=== PATIENT | female | born 1935 | race Caucasian/White ===

== ENCOUNTER 2017-06-28 13:23 | Inpatient (IN) | payer MEDICARE, OTHER ==
[2017-06-28] MEDS ORDERED: Meclizine HCl 25 MG TAB ONE (13:48)
[2017-06-28 14:03] LABS: #Basophils 0.1 thou/uL (0.0-0.2); #Eosinphils 0.6 thou/uL (0.0-0.7); #Lymphocytes 2.5 thou/uL (1.20-3.40); #Monocytes 0.7 thou/uL (0.11-0.59); #Neutrophils 8.5 thou/uL (1.40-6.50); %Eosinophils 5.1 % (0.0-10.0); %Monocytes 5.6 % (0.0-10.0); Hematocrit 37.1 % (36.0-47.0); Red Blood Cell (RBC) Count 4.39 mill/uL (4.20-5.40); White Blood Cell (WBC) Count 12.5 thou/uL (4.8-10.8)
[2017-06-28 14:15] LABS: ALT (SGPT) 13 U/L (8-55); AST (SGOT) 24 U/L (5-34); Alkaline Phosphatase 113 U/L (40-150); Anion Gap 14 mmol/L (10-20); BUN (Urea Nitrogen) 10 mg/dL (9.8-20.1); Bilirubin, Total 0.4 mg/dL (0.2-1.2); Calc. Creatinine Clearance 0 mL/min (70-130); Calcium 9.4 mg/dL (7.8-10.44); Carbon Dioxide 24 mmol/L (23-31); Chloride 95 mmol/L (98-107); Estimated GFR-MDRD 83; Protein, Total 8.8 g/dL (6.0-8.3)
[2017-06-28] MEDS ORDERED: Ondansetron HCl/PF 4 MG/2 ML Vial ONE (14:15)
--- NOTE | 2017-06-28 14:52 | CT ---
CT HAD NONCONTRAST: History: Vertigo. Altered mental status. Comparison: 03-30-17 FINDINGS: There is no evidence of acute intracranial hemorrhage or infarct. Diffuse cortical atrophy is simila r in appearance to the prior exam. There is no mass effect or shift of midline structures. Mucosal t hickening is apparent within partially visualized left maxillary sinus. IMPRESSION: No acute intracranial abnormalities are demonstrated on noncontrast CT head. POS: [facility]
[2017-06-28 15:12] LABS: Bilirubin Negative (Negative); Blood, Urine Trace (Negative); Glucose, Urine (Dipstick) Negative (Negative); Ketone, Urine Negative (Negative); Nitrite Negative (Negative); Protein, Urine (Dipstick) Negative (Neg-Trace); Urobilinogen 0.2 mg/dL (0.2-1.0)
[2017-06-28 15:17] LABS: Bacteria/HPF Rare-Few HPF (None Seen); RBC/HPF 0-3 HPF (0-3); WBC/HPF 0-3 HPF (0-3)
[2017-06-28] MEDS ORDERED: Sodium Chloride 0.9% 1,000 ML IV SCH (17:09)
[2017-06-28 17:44] VITALS: BMI 21.3
[2017-06-28] MEDS ORDERED: Ondansetron HCl/PF 4 MG/2 ML Vial IVP PRN (18:44)
[2017-06-28] MEDS ORDERED: Ondansetron ODT 4 MG TAB PO PRN (18:44)
[2017-06-28] MEDS ORDERED: cloNIDine HCl 0.1 MG TAB PO PRN (18:44)
[2017-06-28] MEDS ORDERED: Acetaminophen 500 MG TAB PO PRN (18:44)
--- NOTE | 2017-06-28 19:27 | HP ---
DATE OF ADMISSION: 06/28/2017 PRIMARY CARE PHYSICIAN: Carlotta Cano M.D. CHIEF COMPLAINT: Dizziness. HISTORY OF PRESENT ILLNESS: This is an 82-year-old female who presents to [facility] in transfer from [facility] after presenting to the [facility] complaining of increased dizziness with associated nausea. The patient states the sympt oms began after she soon got out of bed this morning with one episode of emesis. Patient felt dizzy and unsteady and was unable to walk her normal routine in her home, feeling like she would topple o franci. The patient states she has had similar symptoms in the last 2 months, undergoing evaluation wi thout specific etiology identified other than probable dehydration. The patient states she tries to maintain adequate fluid intake, but states overall her appetite is decreased and she is currently s upplementing her regular diet with Ensure 3 times daily. The patient denies any specific change to her chronic medication regimen, recent exposure history, trauma, injury or fever. The patient denie s any high altitude travel or exposure history and no epistaxis, ear drainage or recent dental proce dures. The patient states the symptoms are markedly increased with movement or standing and relieve d by sitting still. In the emergency room, the patient underwent general evaluation including CT of the brain showing no acute intracranial process. EKG showed sinus mechanism without acute changes. The patient received Zofran intravenous normal saline and meclizine and transferred to the observa tion unit for evaluation. PAST MEDICAL HISTORY: 1. History of generalized weakness. 2. 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 3. Hypertension. 4. Hyperlipidemia. 5. History of polymyalgia rheumatica. 6. Status post influenza A in 2012. 7. Deconditioning. PAST SURGICAL HISTORY: 1. Status post bronchoscopy. 2. Status post carpal tunnel release. 3. Status post ectopic with surgical evacuation. 4. Status post bilateral tubal ligation. CURRENT MEDICATIONS: 1. Enteric coated aspirin 81 mg 1 tab p.o. daily. 2. Lipitor 20 mg p.o. at bedtime. 3. Vitamin B12 1000 mcg p.o. daily. 4. Docusate sodium 100 mg p.o. at bedtime. 5. Ibuprofen 400 mg p.o. q.6 hours p.r.n. 6. Atrovent HFA 1 puff inhaled b.i.d. 7. Metoprolol 25 mg p.o. b.i.d. 8. Multivitamin 1 tablet p.o. daily. 9. MiraLax 17 grams p.o. daily. 10. Spiriva HandiHaler 18 mcg inhaled daily. ALLERGIES: To HYDRALAZINE and PROMETHAZINE. FAMILY HISTORY: No inheritable diseases per patient report. SOCIAL HISTORY: Patient resides in [place], [place] with her daughter. Ambulates occasionally with the use of a walker, none currently. No recent fall. No alcohol, tobacco or illicit drug use. REVIEW OF SYSTEMS: The following complete review of systems was negative, unless otherwise mentione d in the HPI or below: Constitutional: Weight loss or gain, ability to conduct usual activities. Skin: Rash, itching. Eyes: Double vision, pain. ENT/Mouth: Nose bleeding, neck stiffness, pain, tenderness. Cardiovascular: Palpitations, dyspnea on exertion, orthopnea. Respiratory: Shortness of breath, wheezing, cough, hemoptysis, fever or night sweats. Gastrointestinal: Poor appetite, abdominal pain, heartburn, nausea, vomiting, constipation, or diar aj. Genitourinary: Urgency, frequency, dysuria, nocturia. Musculoskeletal: Pain, swelling. Neurologic/Psychiatric: Anxiety, depression. Allergy/Immunologic: Skin rash, bleeding tendency. Otherwise negative except as stated per HPI. PHYSICAL EXAMINATION: VITAL SIGNS: Currently, blood pressure 185/84, pulse 81, respiratory rate 18, temperature 97.5 degr ees Fahrenheit, O2 saturation 96% on 2 liters per minute by nasal cannula. GENERAL APPEARANCE: This is an 82-year-old female, alert and oriented x3, pleasant, respo nsive, in no acute distress. HEENT: Pupils are equal, round, and reactive to light and accommodation. Extraocular muscles are i ntact. No scleral icterus, no conjunctival injection. Nares patent. OP is clear. Teeth in good r epair. NECK: Supple, no cervical adenopathy, no thyromegaly, right carotid bruit, no JVD appreciated. Cer vical spine with full active and passive range of motion. CHEST: Lungs are clear to auscultation with occasional expiratory and inspiratory rhonchi and coars e breath sounds. CARDIOVASCULAR: S1 and S2 without noted murmur. ABDOMEN: Flat, soft, nontender, nondistended. Bowel sounds are positive in all four quadrants. Th ere is no hepatosplenomegaly, no abdominal bruits, no rebound or guarding appreciated. EXTREMITIES: Warm and dry with fair turgor. No clubbing, cyanosis or asymmetric edema appreciated. Pulses palpable distally at the dorsalis pedis, posterior tibial, and popliteal arteries bilateral ly. Capillary refill less than 2 seconds. NEUROLOGIC: Cranial nerves II-XII are grossly intact. No focal or lateralizing signs appreciated. No nystagmus noted. PERTINENT LABORATORY DATA AND X-RAY FINDINGS: Sodium 129, potassium 3.8, chloride 95, CO2 of 24, an ion gap 14, BUN 10, creatinine 0.68, estimated GFR of 83, glucose 115, calcium 9.4, magnesium 1.7. LFTs within normal limits. CRP 0.86. Albumin 3.8. CBC showed white blood cell count of 12.5, hemo globin 12.4, hematocrit 37, platelet count 307 with 68% neutrophils. CT of the brain without contra st dated 06/28/2017 showed no acute intracranial process. EKG dated 06/28/2017 by my interpretation shows a sinus mechanism with rates in the 60s. Normal R-wave progression noted in the precordial l adore. Normal axis. No acute ST-T wave changes appreciated. ASSESSMENT AND PLAN: 1. Acute vertigo. Patient will be observed on the stroke unit. Suspect benign positional vertigo; however, given patient's comorbid status and advanced age, we will obtain MRI imaging of the brain to rule out vertebral artery stenosis. Check orthostatic vital signs q.4 hours x2. Check TSH and m agnesium level. Continue blood pressure trend monitoring. We will continue intravenous normal sali ne at 100 mL per hour for questionable component of volume depletion and dehydration. 2. Question of volume depletion/dehydration. Continue intravenous normal saline 100 mL per hour. 3. Hyponatremia. Appears chronic after review of electronic medical record dating back to 2014. W e will give intravenous normal saline as stated previously and repeat sodium level in the a.m. 4. Hypertension. Continue serial blood pressure monitoring. Resume home antihypertensive regimen to include metoprolol 25 mg p.o. b.i.d. 5. Chronic hypoxic respiratory failure secondary of bronchiectasis. Stable currently. No evidence to suggest pulmonary decompensation. Continue oxygen supplementation at 2 liters per minute by jodi al cannula. Resume Atrovent HFA 1 puff inhaled b.i.d. 6. Prophylaxis. Sequential compression devices while in bed. Pepcid 20 mg p.o. b.i.d. 7. Code status is FULL. Surrogate medical decision maker is the patient's daughter.
[2017-06-28] MEDS: Sodium Chloride 0.9% 1,000 ML IV SCH (20:25)
[2017-06-28] MEDS: Atorvastatin Calcium 20 MG TAB PO SCH (20:28)
[2017-06-28] MEDS: Famotidine 20 MG TAB PO SCH (20:28)
[2017-06-28] MEDS: Metoprolol Tartrate 25 MG TAB PO SCH (20:28)
[2017-06-28] MEDS: Ipratropium Bromide 2.5 ml Neb NEB SCH ×2 (20:29→23:49)
[2017-06-28] MEDS: Meclizine HCl 25 MG TAB PO SCH (20:30)
[2017-06-28] MEDS: Docusate 100 MG CAP PO SCH (20:30)
[2017-06-28] MEDS: Ipratropium Oral Inhaler (200 INHALATIONS) INH SCH (20:32)
[2017-06-29] MEDS: Sodium Chloride 0.9% 1,000 ML IV SCH ×2 (04:27→15:32)
[2017-06-29 04:42] LABS: Hematocrit 33.6 % (36.0-47.0); Mean Platelet Volume 6.9 fL (7.4-10.4); Red Blood Cell (RBC) Count 3.66 mill/uL (4.20-5.40); White Blood Cell (WBC) Count 7.7 thou/uL (4.8-10.8)
[2017-06-29 04:51] LABS: Anion Gap 8 mmol/L (10-20); BUN (Urea Nitrogen) 7 mg/dL (9.8-20.1); Calc. Creatinine Clearance 62 mL/min (70-130); Calcium 8.8 mg/dL (7.8-10.44); Carbon Dioxide 27 mmol/L (23-31); Chloride 104 mmol/L (98-107); Estimated GFR-MDRD 87; Magnesium 1.8 mg/dL (1.6-2.6)
[2017-06-29 05:24] LABS: Neutrophil 54 % (42-75)
[2017-06-29] MEDS: Meclizine HCl 25 MG TAB PO SCH ×3 (05:39→21:07)
[2017-06-29] MEDS: Ipratropium Bromide 2.5 ml Neb NEB SCH ×2 (06:28→13:55)
[2017-06-29] MEDS: Ipratropium Oral Inhaler (200 INHALATIONS) INH SCH (06:31)
[2017-06-29] MEDS: Metoprolol Tartrate 25 MG TAB PO SCH ×2 (08:26→21:07)
[2017-06-29] MEDS: Polyethylene Glycol 3350 17 GM Packet PO SCH (08:26)
[2017-06-29] MEDS: Multivit, Therapeutic 1 TAB PO SCH (08:26)
[2017-06-29] MEDS: Famotidine 20 MG TAB PO SCH ×2 (08:26→21:07)
[2017-06-29] MEDS: Cyanocobalamin (Vitamin B-12) 1,000 MCG TAB PO SCH (08:26)
[2017-06-29] MEDS ORDERED: FLU VACC TS2017-18 (>65YR) 0.5 ML SYRINGE IM ONE (09:00)
--- NOTE | 2017-06-29 15:49 | MRI ---
PRE AND POST CONTRAST ENHANCED MRI OF THE BRAIN: History: 82-year-old with vertigo. Patient had similar symptoms two weeks ago. Technique: Pre and post contrast enhanced MRI images of the brain obtained. FINDINGS: Images demonstrate no evidence of acute strokes, hemorrhages, or masses. No significant evidence of T2 signal abnormality is seen . There does appear to be some mild increased T2 signal hallie nges seen in the central kun possibly representing central pontine white matter changes. There is some mild diffuse meningeal enhancement. This may represent possible diffuse carcinomatosis or other inflammatory causes of the meninges. It may be worthwhile to consider a spinal tap as well as correlate with clinical and laboratory findings. Left maxillary sinus mucosal thickening seen. There is also an air fluid level in the left maxillary sinus. IMPRESSION: Diffuse meningeal enhancement POS: [facility]
--- NOTE | 2017-06-29 21:05 | CON ---
DATE OF CONSULTATION: 06/29/2017 REASON FOR CONSULTATION: Dizziness and abnormal MRI brain. REFERRING PROVIDER: Elliott Santoyo D.O. HISTORY OF PRESENT ILLNESS: Ms. Forrester is a pleasant 82-year-old female, who has been cons ulted for evaluation of dizziness and abnormal brain MRI. Patient has had actually been seen by me in her previous admission who had presented with similar complaints. At that time, her symptoms wer e felt to be benign positional vertigo. Patient had been discharged to rehab therapy. She reported that she was improving her gait imbalance as well as generalized weakness after undergoing rehabili tation therapy. She notes that on since yesterday, she started having increasing episodes of dizzin ess with nausea sensation. She described her dizziness as having a room spinning around as well as blurry vision. She had to hold onto bautista to walk. She was having difficulty with focusing. She d enied having any headache, chest pain, palpitation, numbness, tingling, difficulty with bowel or myrna dder function. PAST MEDICAL HISTORY: Significant for hypertension, hyperlipidemia, chronic bronchiectasis secondar y to TB exposure as a child, hyperlipidemia and polymyalgia rheumatica. PAST SURGICAL HISTORY: Significant for carpal tunnel release, ectopic with surgical evacu ation, bilateral tubal ligation. CURRENT MEDICATIONS: Please review MAR. ALLERGIES: Include HYDRALAZINE and PROMETHAZINE. FAMILY HISTORY: Noncontributory. SOCIAL HISTORY: She denies smoking, alcohol use or illicit drug use. REVIEW OF SYSTEMS: As mentioned in the HPI, otherwise negative. PHYSICAL EXAMINATION: VITAL SIGNS: Blood pressure of 145/72, pulse of 70, temperature of 97.5, respirations of 16, O2 sat s of 95% on room air. GENERAL: Well-developed, well-nourished female in no apparent distress. RESPIRATORY: Clear to auscultation bilaterally. CARDIOVASCULAR: Regular rate and rhythm. NEUROLOGIC: Mental status: The patient is awake, alert and oriented x3. Speech and language: Flu ent speech. Cranial nerves: Pupils are 3 mm and reactive. Visual ellis are intact. Extraocular muscles are intact. No nystagmus is noted. Face is symmetric. Tongue and uvula midline. Motor ex am showed normal tone and bulk with a 5/5 strength in both upper and lower extremities. Sensory: S ensation is intact and symmetric. Deep tendon reflexes 2+ reflexes in both upper and lower extremit ies. Babinski: Plantar responses flexion bilaterally. Coordination intact to [id number]-[id number]-grapln t apping bilaterally. LABORATORY DATA: Reviewed, which included CBC, CMP, TSH, urinalysis, CRP, sed rate which is signifi cant for hemoglobin 10.8, hematocrit 33.6. Sed rate of 81. Sodium 135 and CRP of 0.86, otherwise u nremarkable. IMAGING STUDIES: MRI brain with and without contrast was reviewed, which showed diffuse meningeal e nhancement, left mucosal maxillary sinus thickening. There is air fluid level in the left maxillary sinus. IMPRESSION: 1. Meningeal enhancement on MRI. 2. Dizziness. PLAN: Ms. Forrester is a pleasant 82-year-old female who presented with the episode of dizzin ess. She had MRI brain done, which showed diffuse meningeal enhancement that is of unknown etiology . At this time, I would recommend obtaining a lumbar puncture under fluoroscopy. I will obtain CSF , WBC, RBC, glucose, protein, CSF RIGOBERTO, CSF VDRL, Gram stain cultures, and fungal culture. I will fo llow the results of the lumbar puncture and provide further recommendations at that time.
[2017-06-29] MEDS: Atorvastatin Calcium 20 MG TAB PO SCH (21:07)
[2017-06-29] MEDS: Docusate 100 MG CAP PO SCH (21:07)
[2017-06-30] MEDS: Sodium Chloride 0.9% 1,000 ML IV SCH ×2 (01:39→14:45)
[2017-06-30] MEDS: Meclizine HCl 25 MG TAB PO SCH ×2 (05:52→14:46)
[2017-06-30] MEDS: Polyethylene Glycol 3350 17 GM Packet PO SCH (10:12)
[2017-06-30] MEDS: Cyanocobalamin (Vitamin B-12) 1,000 MCG TAB PO SCH (10:13)
[2017-06-30] MEDS: Multivit, Therapeutic 1 TAB PO SCH (10:13)
[2017-06-30] MEDS: Famotidine 20 MG TAB PO SCH (10:13)
[2017-06-30] MEDS: Metoprolol Tartrate 25 MG TAB PO SCH (10:14)
[2017-06-30 11:02] LABS: CSF, Glucose 59 mg/dl (40-70)
--- NOTE | 2017-06-30 11:55 | PDOC.PN ---
- Subjective Encounter Start Date: 06/29/17 Encounter Start Time: 14:00 Subjective: f/u for dizziness/vertigo. CT brain negative but MRI brain showing -: diffuse meningeal enhancement of unknown significance. Some dizziness -: when ambulating. - Objective MAR Reviewed: Yes Result Diagrams: 06/29/17 04:28 06/29/17 04:28 Radiology Reviewed by me: Yes (MRI Brain - diffuse meningeal enhancement, no acute CVA, L maxill sinus dz) EKG Reviewed by me: Yes (Tele - SR in 80's) Phys Exam - Physical Examination Constitutional: NAD HEENT: PERRLA, oral pharynx no lesions Neck: no JVD, supple Respiratory: no wheezing, clear to auscultation bilateral Cardiovascular: RRR Gastrointestinal: soft, non-tender, no distention, positive bowel sounds Musculoskeletal: no edema, pulses present No nystagmus Neurological: normal sensation, moves all 4 limbs Psychiatric: A&O x 3 Skin: normal turgor, cap refill <2 seconds Dx/Plan (1) Dizziness Code(s): R42 - DIZZINESS AND GIDDINESS Status: Acute Comment: ? etiology, ? BPPV vs dehydration or structural brain abnormality, consult Neurology service given changes noted on MRI brain (2) Nausea & vomiting Code(s): R11.2 - NAUSEA WITH VOMITING, UNSPECIFIED Status: Acute Comment: Resolved, advance diet, continue IVF's (3) Dehydration Code(s): E86.0 - DEHYDRATION Status: Acute Comment: See above, resolving (4) Hyponatremia Code(s): E87.1 - HYPO-OSMOLALITY AND HYPONATREMIA Status: Acute Comment: Due to poor po intake, continue IVF NS - Plan plan discussed w/ family, PT/OT, DVT proph w/SCDs Stable overall -: Consult Neurology service given meningeal enhancement on MRI -: Start Augmentin 875mg BID -: Flonase nasal spray 2 sprays Daily -: Continue IVF's another 24h then d/c * .
--- NOTE | 2017-06-30 13:35 | RAD ---
FLUOROSCOPICALLY GUIDED LUMBAR PUNCTURE DIAGNOSTIC: Date: 06-30-17 History: 82-year-old female with vertigo. Abnormal meningeal enhancement demonstrated on MRI. Technique: Signed informed consent obtained. Leg Assembler radiographic images of lumbar spine obtained. The patient wa s placed prone MOHAWK on fluoroscopy table. Skin of lower back prepped and draped in usual sterile fash ion. 25 gauge needle used to apply buffered Lidocaine superficially and deeply. 22 gauge spinal need le advanced into the spinal canal and thecal sac from right paramedian approach at L2-3 level. CSF f low was very slow. Clear CSF was slowly collected, 1 ml in first vial, 3 ml in second vial, and 3.5 ml in third vial. Needle was removed. The patient tolerated the procedure well. No complications. Th e three CSF vials was sent to laboratory for analysis. FINDINGS: Leg Assembler radiograph demonstrates five lumbar type vertebrae. Vertebral body heights are maintained. No scoliosis. Severe degenerative facet changes at lower levels. At L3-4 there is severe disc space narrowing with vacuum disc phenomenon and slight degenerative ret rolisthesis of L3 on L4. L4-5: There is moderate disc space narrowing and a grade I anterolisthesis of L4 on L5. L5-S1: There is severe disc space narrowing. IMPRESSION: 1. Successful lumbar puncture. 7.5 ml of clear cerebrospinal fluid collected and sent to laboratory for analysis. 2. Low CSF pressure. 3. Lumbar spondylosis, with high grade degenerative disc disease and high grade facet osteoarthrosis at various levels. POS: [facility]
[2017-06-30 16:38] VITALS: BP 161/74; TEMP 98
--- NOTE | 2017-06-30 16:38 | PDOC.PN ---
- Subjective Encounter Start Date: 06/30/17 Encounter Start Time: 16:25 Subjective: f/u for dizziness/vertigo and MRI showing diffuse meningeal enhancement -: s/p LP for CSF analysis. Overall dizziness improved. - Objective MAR Reviewed: Yes Vital Signs & Weight: Vital Signs (12 hours) Temp Pulse Resp BP Pulse Ox 06/30/17 13:22 71 18 98 06/30/17 12:00 97.6 F 92 20 178/90 H 92 L Result Diagrams: 06/29/17 04:28 06/29/17 04:28 Additional Labs: Microbiology 06/30/17 09:50 Spinal Fluid Culture Cryptococcal Antigen - Final 06/30/17 09:50 Spinal Fluid Body Fluid Culture - Preliminary EKG Reviewed by me: Yes (Tele - SR) Phys Exam - Physical Examination Constitutional: NAD HEENT: PERRLA, oral pharynx no lesions Neck: no JVD, supple Respiratory: no wheezing Cardiovascular: RRR Gastrointestinal: soft, non-tender, no distention, positive bowel sounds Musculoskeletal: no edema, pulses present Neurological: normal sensation, moves all 4 limbs Psychiatric: A&O x 3 Skin: normal turgor, cap refill <2 seconds Dx/Plan (1) Dizziness Code(s): R42 - DIZZINESS AND GIDDINESS Status: Acute Comment: ? etiology, ? BPPV vs dehydration or structural brain abnormality, consult Neurology service given changes noted on MRI brain (2) Nausea & vomiting Code(s): R11.2 - NAUSEA WITH VOMITING, UNSPECIFIED Status: Acute Comment: Resolved, advance diet, continue IVF's (3) Dehydration Code(s): E86.0 - DEHYDRATION Status: Acute Comment: See above, resolving (4) Hyponatremia Code(s): E87.1 - HYPO-OSMOLALITY AND HYPONATREMIA Status: Acute Comment: Due to poor po intake, continue IVF NS - Plan * .
--- NOTE | 2017-07-01 00:50 | DIS ---
DATE OF ADMISSION: 06/28/2017 DATE OF DISCHARGE: 06/30/2017 DISCHARGE DIAGNOSES: 1. Acute on chronic vertigo/dizziness, likely benign positional, improved. 2. Nausea and vomiting secondary to #1, resolved. 3. Dehydration, resolved. 4. Hyponatremia, multifactorial, improved. 5. Deconditioning. 6. Hypertension, stable. 7. Chronic hypoxic respiratory failure secondary to history of bronchiectasis. 8. Meningeal enhancement by MRI, questionable clinical significance. CONSULTATION: Dr. Maria Lay with Neurology Service. PERTINENT LABORATORY AND X-RAY FINDINGS: Sodium ranged between 129-135, creatinine ranged between 0 .65-0.68, estimated GFR ranged between 83-87. LFTs within normal limits. CRP is 0.86, albumin 3.8 and TSH 2.81. CBC showed a white blood cell count ranged between 7.7-12.5, hemoglobin ranged betwee n 10.8-12.4. ESR 81. CSF analysis 06/30/2017, showed negative study. Gram stain dated 06/30/2017, showed no organisms. Cryptococcal antigen of CSF dated 06/30/2017, negative. CT of the brain with out contrast dated 06/28/2017, showed no acute intracranial process. MRI of the brain dated 017, showed diffuse meningeal enhancement. Left maxillary sinus mucosal thickening seen. HOSPITAL COURSE: The patient was placed on the telemetry unit after initially presenting with acute vertigo with associated nausea and vomiting and concern for initial stroke-like symptoms. The asia ent underwent extensive neuroimaging studies showing no evidence of acute CVA or mass. MRI images d id reveal meningeal enhancement prompting a Neurology consultation. The patient underwent CSF evalu ation to rule out infectious process, which to date has been negative. The patient received IV flui ds after clinical evidence of dehydration and clinically stabilize with supportive management. The patient was also treated for mild hyponatremia, improving with normal saline infusion. Overall, the patient remained clinically stable throughout the remainder of the hospital course with current rec ommendations for outpatient monitoring given that the CSF evaluation was essentially negative for in fectious process. The patient is stable and ready for discharge on 06/30/2017. DISCHARGE MEDICATIONS: 1. Augmentin 875 mg 1 tab p.o. b.i.d. x10 days. 2. Flonase nasal spray 2 sprays in each naris daily. 3. Enteric coated aspirin 81 mg 1 tab p.o. daily. 4. Lipitor 20 mg p.o. at bedtime. 5. Vitamin B12 1000 mcg p.o. daily. 6. Docusate sodium 100 mg p.o. at bedtime. 7. Ibuprofen 400 mg p.o. q.6 hours p.r.n. 8. Atrovent HFA 1 puff inhaled b.i.d. 9. Antivert 25 mg p.o. t.i.d. p.r.n. 10. Metoprolol tartrate 25 mg p.o. b.i.d. 11. Multivitamin 1 tab p.o. daily. 12. MiraLax 17 grams p.o. daily. 13. Spiriva HandiHaler 18 mcg 1 puff inhaled daily. FOLLOWUP: The patient may follow up with her primary care provider, Dr. Carlotta Cano within 7 days of discharge. CONDITION ON DISCHARGE: Stable. ACTIVITY: Ad janes. DIET: Regular. CODE STATUS: Full. DISPOSITION: Home on 06/30/2017. Total time preparing and coordinating discharge 36 minutes.
--- NOTE | 2017-07-01 07:36 | PRG ---
DATE OF SERVICE: 06/30/2017 SUBJECTIVE: Ms. Forrester reports of doing well over the past 24 hours. She denies any headache, light headedness, dizziness, nausea, vomiting, chest pain, palpitation, numbness, tingling or weakness. S he did have a lumbar puncture done today, for which the lab results show CSF WBC of 0, CSF RBC of 0, CSF glucose of 59, and CSF protein of 37. Gram stain was negative. Cryptococcal antigen was negat annette. PHYSICAL EXAMINATION: VITAL SIGNS: Blood pressure of 161/74, pulse of 81, temperature of 98, respirations of 16, O2 sats of 97% on 2 liter nasal cannula. GENERAL: A well-developed, well-nourished female, in no apparent distress. RESPIRATORY: Clear to auscultation bilaterally. CARDIOVASCULAR: Regular rate and rhythm. NEUROLOGICAL: Mental status exam: The patient is awake, alert, oriented x3. Speech and language: Fluent speech. Cranial nerves: Pupils are 3 mm and reactive. Visual ellis are intact. Extraocu lar muscles are intact. No nystagmus is noted. Face is symmetric. Motor exam showed normal tone a nd bulk with 5/5 strength in both lower extremities. Coordination is intact to [id number] o n both sides. LABORATORY DATA: Labs are reviewed; the findings are as noted in the HPI section. IMPRESSION: 1. Meningeal enhancement on the MRI. 2. Dizziness. Ms. Forrester is a pleasant 82-year-old female, who presented with episodes of dizziness and v ertigo. She had an MRI brain done, which showed diffuse meningeal enhancement. Her lumbar puncture results were essentially normal at this time; the cause for the meningeal enhancement is unknown; h owever, underlying inflammatory and infectious etiology have been ruled out based on the negative l umbar puncture results. At this time, there is no further neurological workup needed from my standp oint. The patient is okay to be discharged to home. Thank you for your consultation.
[2017-07-02 17:13] LABS: VDRL, CSF Non Reactive (Non Rea:<1:1)
== END 2017-06-30 19:35 | disposition home or self-care (01) | DRG 149 ==
LOC: SCSER 13:23 → 2SE 17:07 → OBSVTOIN 06-30 10:49
PROVIDERS: ADMIT Family Medicine; ATTEND Family Medicine
PROC: 009U3ZX Drainage of Spinal Canal, Percutaneous Approach, Diagnostic (ICD-10-PCS; principal; 2017-06-30)
DX: H81.10 Benign paroxysmal vertigo, unspecified ear (principal); J96.11 Chronic respiratory failure with hypoxia; E87.1 Hypo-osmolality and hyponatremia; I10 Essential (primary) hypertension; R11.2 Nausea with vomiting, unspecified; R93.0 Abnormal findings on diagnostic imaging of skull and head, not elsewhere classified; E78.5 Hyperlipidemia, unspecified; J47.9 Bronchiectasis, uncomplicated
CPT/HCPCS: 36415; 62270; 70450; 70553; 80048; 80053; 81003; 81015; 82945; 83735; 84157; 84443; 85007; 85025; 85027; 85652; 86140; 86592; 86612; 86635; 86698; 87070; 87205; 87899; 89051; 90471; 90682; 93005; 94640; 94664; 96361; 96374; A4216; G0008; J2405; J7620; J7644; Q2036